=== PATIENT | female | born 1945 | race Caucasian/White ===

== ENCOUNTER 2017-04-06 13:41 | Outpatient (CLI) | payer MEDICARE ==
--- NOTE | 2017-04-06 14:28 | MMO ---
BILATERAL SCREENING MAMMOGRAM: HISTORY: A 72-year-old female for screening mammography. COMPARISON: 03/04/16, 02/24/15, 02/25/14. FINDINGS: Bilateral MLO and CC views of the breasts show scattered fibroglandular breast tissue. There is no evidence of suspicious mass, suspicious clustered microcalcifications, or area of architectural dist ortion Interpretation of this mammogram was performed with the assistance of computer-aided detection. IMPRESSION: BI-RADS category 1 - negative. Annual screening mammography is recommended. BIRADS 1: Negative Routine annual screening mammography (for women over age 40) POS: [facility]
== END 2017-04-06 13:42 | disposition home or self-care (01) ==
LOC: SCSMAMMO 13:41
PROVIDERS: ATTEND Specialist
DX: Z12.31 Encounter for screening mammogram for malignant neoplasm of breast (principal)
CPT/HCPCS: 77067; G0202

== ENCOUNTER 2018-04-17 07:34 | Outpatient (CLI) | payer MEDICARE | END 2018-04-17 07:35 | disposition home or self-care (01) | LOC: BICMAMMO 07:34 | PROVIDERS: ATTEND Specialist | DX: Z12.31 Encounter for screening mammogram for malignant neoplasm of breast (principal); R92.1 Mammographic calcification found on diagnostic imaging of breast; Z80.3 Family history of malignant neoplasm of breast | CPT/HCPCS: 77063; 77067 ==

== ENCOUNTER 2020-12-13 12:34 | Emergency (ER) | payer OTHER, MEDICARE ==
[~2020-12-13 12:34] MED LIST: Iopamidol-370 76% 500 ML 1 ML ONE
[2020-12-13] MEDS ORDERED: Morphine 4 MG/ML VIAL ONE (12:59)
[2020-12-13] MEDS ORDERED: Ondansetron PF 4 MG/2 ML Vial ONE (12:59)
[2020-12-13] MEDS ORDERED: Bacitracin 1 PK ONE (13:22)
[2020-12-13 13:55] LABS: ALT (SGPT) 26 U/L (8-55); AST (SGOT) 20 U/L (5-34); Albumin 3.7 g/dL (3.4-4.8); Alkaline Phosphatase 71 U/L (40-110); Anion Gap 11 mmol/L (10-20); BUN (Urea Nitrogen) 20 mg/dL (9.8-20.1); Bilirubin, Total 0.3 mg/dL (0.2-1.2); Calc. Creatinine Clearance 0 mL/min (70-130); Calcium 8.4 mg/dL (7.8-10.44); Carbon Dioxide 24 mmol/L (23-31); Chloride 108 mmol/L (98-107); Globulin 2.3 g/dL (2.4-3.5); Glucose 109 mg/dL (83-110); Potassium 4.2 mmol/L (3.5-5.1); Sodium 139 mmol/L (136-145)
== END 2020-12-13 16:45 | disposition home or self-care (01) ==
LOC: ERS 12:34
DX: S16.1XXA Strain of muscle, fascia and tendon at neck level, initial encounter (principal); R07.9 Chest pain, unspecified; E78.5 Hyperlipidemia, unspecified; E78.00 Pure hypercholesterolemia, unspecified; I10 Essential (primary) hypertension; V89.2XXA Person injured in unspecified motor-vehicle accident, traffic, initial encounter
CPT/HCPCS: 36415; 71260; 72125; 74177; 80053; 96374; 96375; J2270; J2405; Q9967

== ENCOUNTER 2021-11-04 19:00 | Outpatient (CLI) | payer MEDICARE | END 2021-11-04 19:01 | disposition home or self-care (01) | LOC: SLEEPLAB 19:00 | PROVIDERS: ATTEND Family Medicine | DX: G47.33 Obstructive sleep apnea (adult) (pediatric) (principal); R53.83 Other fatigue; G31.84 Mild cognitive impairment of uncertain or unknown etiology; G47.10 Hypersomnia, unspecified; I10 Essential (primary) hypertension; F32.9 Major depressive disorder, single episode, unspecified; G47.00 Insomnia, unspecified; G47.52 REM sleep behavior disorder; G47.61 Periodic limb movement disorder | CPT/HCPCS: 95810 ==

== ENCOUNTER 2021-11-28 12:36 | Emergency (ER) | payer MEDICARE ==
[2021-11-28 13:09] LABS: #Eosinphils 0.1 thou/uL (0.0-0.7); #Lymphocytes 1.4 thou/uL (1.20-3.40); #Monocytes 0.4 thou/uL (0.11-0.59); #Neutrophils 3.3 thou/uL (1.40-6.50); %Basophils 0.6 % (0.0-1.0); %Eosinophils 2.8 % (0.0-10.0); %Lymphocytes 26.4 % (21.0-51.0); %Monocytes 7.7 % (0.0-10.0); %Neutrophils 62.4 % (42.0-75.0); Hemoglobin 10.7 g/dL (12.0-16.0); Mean Corpuscular HGB CONC 32.9 g/dL (32.0-36.0); Mean Corpuscular Hemoglobin 30.5 pg (27.0-31.0); Mean Corpuscular Volume 92.6 fL (78.0-98.0); Mean Platelet Volume 7.1 fL (7.4-10.4); Platelet Count 250 thou/uL (130-400); RBC Distribution Width 10.9 % (11.5-14.5); Red Blood Cell (RBC) Count 3.52 mill/uL (4.20-5.40); White Blood Cell (WBC) Count 5.2 thou/uL (4.8-10.8)
[2021-11-28 13:33] LABS: ALT (SGPT) 35 U/L (8-55); AST (SGOT) 25 U/L (5-34); Albumin 3.8 g/dL (3.4-4.8); Alkaline Phosphatase 90 U/L (40-110); Anion Gap 12 mmol/L (10-20); BUN (Urea Nitrogen) 14 mg/dL (9.8-20.1); Bilirubin, Total 0.4 mg/dL (0.2-1.2); CK (CPK) 90 U/L (29-168); Calc. Creatinine Clearance 0 mL/min (70-130); Calcium 8.6 mg/dL (7.8-10.44); Carbon Dioxide 24 mmol/L (23-31); Chloride 103 mmol/L (98-107); Globulin 2.2 g/dL (2.4-3.5); Glucose 99 mg/dL (83-110); Magnesium 1.8 mg/dL (1.6-2.6); Potassium 4.6 mmol/L (3.5-5.1); Sodium 134 mmol/L (136-145)
== END 2021-11-28 14:04 | disposition home or self-care (01) ==
LOC: ERS 12:36
DX: R55 Syncope and collapse (principal); I10 Essential (primary) hypertension; E78.00 Pure hypercholesterolemia, unspecified; E78.5 Hyperlipidemia, unspecified; Z79.899 Other long term (current) drug therapy
CPT/HCPCS: 36415; 71045; 80053; 82550; 83735; 84484; 85025; 93005; 96360

== ENCOUNTER 2022-02-05 19:00 | Outpatient (CLI) | payer MEDICARE, OTHER | END 2022-02-05 19:01 | disposition home or self-care (01) | LOC: SLEEPLAB 19:00 | PROVIDERS: ATTEND Family Medicine | DX: G47.33 Obstructive sleep apnea (adult) (pediatric) (principal); R53.83 Other fatigue; G31.84 Mild cognitive impairment of uncertain or unknown etiology; R06.83 Snoring; G47.10 Hypersomnia, unspecified; E66.9 Obesity, unspecified; Z68.27 Body mass index [BMI] 27.0-27.9, adult | CPT/HCPCS: 95811 ==

== ENCOUNTER 2022-04-08 09:18 | Outpatient (CLI) | payer OTHER ==
[2022-04-08 11:51] LABS: Hemoglobin 11.4 g/dL (12.0-15.5); Mean Corpuscular HGB CONC 33.1 g/dL (32.0-36.0); Mean Corpuscular Hemoglobin 29.4 pg (27.0-33.0); Mean Corpuscular Volume 88.7 fl (81.6-98.3); Mean Platelet Volume 10.6 fl (7.4-10.4); Platelet Count 275 10x3/uL (150-450); RBC Distribution Width 12.7 % (11.5-14.5); Red Blood Cell (RBC) Count 3.88 10x6/uL (3.90-5.03); White Blood Cell (WBC) Count 4.6 10x3/uL (3.5-10.5)
[2022-04-08 11:59] LABS: INR-International Normal Ratio 0.9; Prothrombin Time 10.2 sec (9.5-12.1)
[2022-04-08 12:04] LABS: Anion Gap 16 mmol/L (10-20); BUN (Urea Nitrogen) 18 mg/dL (9.8-20.1); Calc. Creatinine Clearance 0 mL/min (70-130); Calcium 9.5 mg/dL (7.8-10.44); Carbon Dioxide 25 mmol/L (23-31); Chloride 102 mmol/L (98-107); Estimated GFR 63; Glucose 90 mg/dL (83-110); Potassium 4.6 mmol/L (3.5-5.1); Sodium 138 mmol/L (136-145)
== END 2022-04-08 09:19 | disposition home or self-care (01) ==
LOC: LABBT 09:18
PROVIDERS: ATTEND Orthopaedic Surgery
DX: Z01.812 Encounter for preprocedural laboratory examination (principal); M17.12 Unilateral primary osteoarthritis, left knee; Z20.822 Contact with and (suspected) exposure to COVID-19
CPT/HCPCS: 80048; 85027; 85610; 87081; 87811

== ENCOUNTER 2022-04-13 05:50 | Inpatient (IN) | payer OTHER ==
[2022-04-09 12:07] VITALS: BMI 25.8
[2022-04-13] MEDS ORDERED: fentaNYL Citrate/PF 100 MCG/2 ML SYRINGE ONE (06:30)
[2022-04-13] MEDS ORDERED: Fentanyl 100 MCG/2 ML VIAL ONE ×3 (06:43→10:09)
[2022-04-13] MEDS ORDERED: Ropivacaine 0.5% HCl/PF (150 MG/30 ML VIAL) ONE (06:43)
[2022-04-13] MEDS ORDERED: Midazolam HCl 2 mg/2 ml Vial ONE (06:43)
[2022-04-13] MEDS ORDERED: Neomycin-Polymyxin 1 ML AMP ONE (06:58)
[2022-04-13] MEDS ORDERED: CEFAZOLIN 2 GM VIAL ONE (07:25)
[2022-04-13] MEDS ORDERED: Sodium Chloride 0.9% 100 ML ONE (07:25)
[2022-04-13] MEDS ORDERED: Ondansetron PF 4 MG/2 ML Vial ONE (07:43)
[2022-04-13] MEDS ORDERED: Ketorolac Tromethamine 30 MG/ML VIAL ONE (07:43)
[2022-04-13] MEDS ORDERED: PROPOFOL 200 MG/20 ML VIAL ONE (07:43)
[2022-04-13] MEDS ORDERED: Lidocaine 1% MPF 2 ML VIAL ONE (07:43)
[2022-04-13] MEDS ORDERED: ePHEDrine 50 MG/ML VIAL ONE (07:43)
[2022-04-13] MEDS ORDERED: Fentanyl 100 MCG/2 ML VIAL SLOW IVP PRN (07:54)
[2022-04-13] MEDS ORDERED: traMADol HCl 50 MG TAB PO PRN ×2 (08:00)
[2022-04-13] MEDS ORDERED: Promethazine HCl 25 MG/ML VIAL IM PRN ×2 (08:00→09:24)
[2022-04-13] MEDS ORDERED: Zolpidem Tartrate 5 MG TAB PO PRN (08:00)
[2022-04-13] MEDS ORDERED: Ondansetron PF 4 MG/2 ML Vial IVP PRN (08:00)
[2022-04-13] MEDS ORDERED: Ropivacaine 0.2% 550 ML 550 ML NERVE BLCK SCH (08:00)
[2022-04-13] MEDS ORDERED: HYDROcodone/Acetaminophen 10/325 mg Tablet PO PRN (08:00)
[2022-04-13] MEDS ORDERED: Bupivacaine/Epinephrine 0.25% 30 ML VIAL ONE (08:14)
[2022-04-13] MEDS ORDERED: Tranexamic Acid 1,000 MG/10 ML VIAL ONE (09:00)
[2022-04-13] MEDS ORDERED: Ondansetron HCl/PF 4 MG/2 ML Vial IVP PRN (09:24)
[2022-04-13] MEDS ORDERED: Promethazine HCl 25 MG/ML VIAL IVPB PRN (09:24)
[2022-04-13] MEDS ORDERED: Morphine 2 MG/ML VIAL SLOW IVP PRN (10:04)
[2022-04-13] MEDS ORDERED: Morphine 4 MG/ML VIAL SLOW IVP PRN (10:04)
[2022-04-13] MEDS: HYDROcodone/Acetaminophen 10/325 mg Tablet PO PRN ×2 (13:02→18:29)
[2022-04-13] MEDS: Ketorolac Tromethamine 30 MG/ML VIAL IVP SCH ×3 (13:02→23:19)
[2022-04-13] MEDS: Sodium Chloride 0.9% 1,000 ML IV SCH ×2 (13:05→21:29)
[2022-04-14] MEDS: Ketorolac Tromethamine 30 MG/ML VIAL IVP SCH ×2 (05:30→12:24)
[2022-04-14] MEDS: Sodium Chloride 0.9% 1,000 ML IV SCH (05:43)
[2022-04-14] MEDS: HYDROcodone/Acetaminophen 10/325 mg Tablet PO PRN ×2 (08:58→14:51)
[2022-04-14 12:48] VITALS: BP 144/69; TEMP 97.2
[2022-04-14] MEDS ORDERED: Lorazepam 0.5 MG TAB PO PRN (13:31)
[2022-04-14] MEDS ORDERED: Amlodipine 5 MG TAB PO SCH (21:00)
[2022-04-15] MEDS ORDERED: Levothyroxine Sodium 50 MCG TAB PO SCH (06:00)
[2022-04-15] MEDS ORDERED: Cholecalciferol 1,000 UNITS (25 MCG) TAB PO SCH (09:00)
[2022-04-15] MEDS ORDERED: Losartan 25 MG TAB PO SCH (09:00)
[2022-04-15] MEDS ORDERED: Ezetimibe 10 MG TAB PO SCH (09:00)
[2022-04-16] MEDS ORDERED: Meloxicam 7.5 MG TAB PO SCH (09:00)
== END 2022-04-14 14:40 | disposition home or self-care (01) | DRG 470 ==
LOC: SDC 05:50 → SURG A 09:44 → SJJU 11:05
PROVIDERS: ADMIT Orthopaedic Surgery; ATTEND Orthopaedic Surgery
PROC: 0SRD0J9 Replacement of Left Knee Joint with Synthetic Substitute, Cemented, Open Approach (ICD-10-PCS; principal; 2022-04-13)
DX: M17.12 Unilateral primary osteoarthritis, left knee (principal); J45.909 Unspecified asthma, uncomplicated; F32.A Depression, unspecified; I10 Essential (primary) hypertension; Z20.822 Contact with and (suspected) exposure to COVID-19; Z88.2 Allergy status to sulfonamides; Z88.7 Allergy status to serum and vaccine
CPT/HCPCS: A4306; C1713; C1776; J0690; J1885; J2250; J2405; J2704; J2795; J3010; J3490; J7050

== ENCOUNTER 2023-12-16 10:23 | Outpatient (CLI) | payer OTHER | END 2023-12-16 10:24 | disposition home or self-care (01) | LOC: SCSRAD 10:23 | PROVIDERS: ATTEND Physician Assistant | DX: M54.50 Low back pain, unspecified (principal); M47.816 Spondylosis without myelopathy or radiculopathy, lumbar region; M47.817 Spondylosis without myelopathy or radiculopathy, lumbosacral region | CPT/HCPCS: 72100 ==